=== PATIENT | female | born 1985 | race Hispanic/Latino ===

== ENCOUNTER 2019-06-18 06:19 | Emergency (ER) | payer OTHER ==
[2019-06-18] MEDS ORDERED: TETANUS & DIPHTHERIA TOX,ADULT 0.5 ML VIAL ONE (06:36)
--- NOTE | 2019-06-18 07:13 | EDPHYS ---
Physician Documentation [facility] Name: Melony Michaud Age: 33 yrs Sex: Female : 1985 Arrival Date: 06/18/2019 Time: 06:21 Bed 17 Private MD: ED Physician Josue Solano HPI: 06/18 06:33 This 33 yrs old Female presents to ER via Unassigned with complaints of Fall kb Injury - Finger Injury. 06:33 Details of fall: The patient fell from an upright position, while walking, slipped in kb mud. Onset: The symptoms/episode began/occurred just prior to arrival. Associated injuries: The patient sustained right hand, abrasion, decreased range of motion, painful injury, swelling, abrasions to heel of hand, pain and decreased ROM to 5th digit, right foot, painful injury, palmar aspect of left forearm, abrasion. Severity of symptoms: At their worst the symptoms were mild, moderate, in the emergency department the symptoms are unchanged. The patient has not experienced similar symptoms in the past. The patient has not recently seen a physician. 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 - Social history:: Smoking status: Patient uses tobacco products, denies chronic smoking, but will smoke occasionally, Patient uses alcohol, occasionally. Patient/guardian denies using street drugs. - Ebola Screening: : Patient negative for fever greater than or equal to 101.5 degrees Fahrenheit, and additional compatible Ebola Virus Disease symptoms Patient denies exposure to infectious person Patient denies travel to an Ebola-affected area in the 21 days before illness onset. ROS: 06:32 Constitutional: Negative for fever, chills, and weight loss, ENT: Negative for injury, kb pain, and discharge, Neck: Negative for injury, pain, and swelling, Cardiovascular: Negative for chest pain, palpitations, and edema, Respiratory: Negative for shortness of breath, cough, wheezing, and pleuritic chest pain, Abdomen/GI: Negative for abdominal pain, nausea, vomiting, diarrhea, and constipation, Neuro: Negative for headache, weakness, numbness, tingling, and seizure. 06:32 MS/extremity: Positive for pain, of the right foot and right little finger. 06:32 Skin: Positive for abrasion(s). Exam: 06:31 Constitutional: This is a well developed, well nourished patient who is awake, alert, kb and in no acute distress. Head/Face: Normocephalic, atraumatic. Neck: Trachea midline, no thyromegaly or masses palpated, and no cervical lymphadenopathy. Supple, full range of motion without nuchal rigidity, or vertebral point tenderness. No Meningismus. Chest/axilla: Normal chest wall appearance and motion. Nontender with no deformity. No lesions are appreciated. Cardiovascular: Regular rate and rhythm with a normal S1 and S2. No gallops, murmurs, or rubs. Normal PMI, no JVD. No pulse deficits. Respiratory: Lungs have equal breath sounds bilaterally, clear to auscultation and percussion. No rales, rhonchi or wheezes noted. No increased work of breathing, no retractions or nasal flaring. Abdomen/GI: Soft, non-tender, with normal bowel sounds. No distension or tympany. No guarding or rebound. No evidence of tenderness throughout. Neuro: Awake and alert, GCS 15, oriented to person, place, time, and situation. Cranial nerves II-XII grossly intact. Motor strength 5/5 in all extremities. Sensory grossly intact. Cerebellar exam normal. Normal gait. 06:31 Musculoskeletal/extremity: Extremities: grossly normal except: noted in the right little finger: decreased ROM, pain, tenderness, ROM: limited active range of motion due to pain, in the right little finger, Circulation is intact in all extremities. Sensation intact. 06:31 Skin: injury, abrasion(s), moderate sized abrasion noted, of the heel of right hand and palmar aspect of left forearm. Vital Signs: 06:25 Weight 114.31 kg (R); Height 5 ft. 9 in. (175.26 cm) (R); Pain 10/10; fc 06:46 BP 132 / 94; Pulse 101; Resp 18; Temp 97.4; Pulse Ox 100% on R/A; Pain 10/10; aa1 07:49 BP 127 / 89; Pulse 99; Resp 16; Temp 97.5; Pulse Ox 100% ; bp 06:25 Body Mass Index 37.21 (114.31 kg, 175.26 cm) fc Eldred Coma Score: 06:25 Eye Response: spontaneous(4). Verbal Response: oriented(5). Motor Response: obeys fc commands(6). Total: 15. Trauma Score (Adult): 06:25 Eye Response: spontaneous(1); Verbal Response: oriented(1); Motor Response: obeys fc commands(2); Systolic BP: > 89 mm Hg(4); Respiratory Rate: 10 to 29 per min(4); Eldred Score: 15; Trauma Score: 12 MDM: 06:23 Patient medically screened. [facility] 06:31 Data reviewed: vital signs, nurses notes. Data interpreted: Pulse oximetry: on room air kb is 100 %. Interpretation: normal. 07:11 Counseling: I had a detailed discussion with the patient and/or guardian regarding: the kb historical points, exam findings, and any diagnostic results supporting the discharge/admit diagnosis, radiology results, the need for outpatient follow up, a family practitioner, to return to the emergency department if symptoms worsen or persist or if there are any questions or concerns that arise at home. 07:15 Test interpretation: by ED physician or midlevel provider: plain radiologic studies, kb nondisplaced fracture of proximal phalanx of fifth digit. 06/18 06:28 Order name: Hand Right 3 View XRAY kb 06/18 06:28 Order name: Foot Right 3 View XRAY kb 06/18 06:28 Order name: Wound Care; Complete Time: 06:49 kb 06/18 07:11 Order name: Finger Splint; Complete Time: 07:33 kb Administered Medications: 06:48 Drug: Tetanus-Diphtheria Toxoid Adult 0.5 ml {National Sales Manager: [employer]. Exp: aa1 01/09/2021. Lot #: [id number]. } Route: IM; Site: left deltoid; 06:58 Follow up: Response: No adverse reaction bp Disposition: 08:31 Co-signature as Attending Physician, Josue Solano MD I agree with the assessment and [facility] plan of care. Disposition: 06/18/19 07:13 Discharged to Home. Impression: Fall on same level from slipping, tripping and stumbling, Pain in right foot, Nondisplaced fracture of proximal phalanx of right little finger, Abrasion of right hand, Abrasion of knee, Abrasion of left elbow. - Condition is Stable. - Discharge Instructions: Foot Sprain, Musculoskeletal Pain, Finger Fracture, [id number], Abrasion, [id number]. - Prescriptions for Diclofenac Sodium 75 mg Oral Tablet, Delayed Release (E.C.) - take 1 tablet by ORAL route 2 times per day As needed; 30 tablet. - Medication Reconciliation Form, Thank You Letter, Antibiotic Education, Prescription Opioid Use, Work release form form. - Follow up: Emergency Department; When: As needed; Reason: Worsening of condition. Follow up: Private Physician; When: 2 - 3 days; Reason: Recheck today's complaints, Continuance of care, Re-evaluation by your physician. Signatures: Dispatcher [employer] EDDyana Woods, CLAUDIA WILSONP-Aleksandra Albright RN RN aa1 Josue Solano MD MD cha Chretien, Felicia, RN RN Erick Cummins RN RN bp Corrections: (The following items were deleted from the chart) 07:55 07:13 06/18/2019 07:13 Discharged to Home. Impression: Fall on same level from bp slipping, tripping and stumbling; Pain in right foot; Nondisplaced fracture of proximal phalanx of right little finger; Abrasion of right hand; Abrasion of knee; Abrasion of left elbow. Condition is Stable. Forms are Work release form, Medication Reconciliation Form, Thank You Letter, Antibiotic Education, Prescription Opioid Use. Follow up: Emergency Department; When: As needed; Reason: Worsening of condition. Follow up: Private Physician; When: 2 - 3 days; Reason: Recheck today's complaints, Continuance of care, Re-evaluation by your physician. kb
--- NOTE | 2019-06-18 07:13 | ER ---
Nurse's Notes [facility] Name: Melony Michaud Age: 33 yrs Sex: Female : 1985 Arrival Date: 06/18/2019 Time: 06:21 Bed 17 Private MD: Diagnosis: Fall on same level from slipping, tripping and stumbling;Pain in right foot;Nondisplaced fracture of proximal phalanx of right little finger;Abrasion of right hand;Abrasion of knee;Abrasion of left elbow Presentation: 06/18 06:25 Presenting complaint: Patient states: that she was walking and slipped in the mud. Has fc cuts to right palm, abrasions to right knee and left elbow and increased pain to right little finger and right foot. Care prior to arrival: Bleeding of injury controlled. Mechanism of Injury: Fall from standing position. Trauma event details: Injury occurred in the [facility], Injury occurred: at home. Injury occurred: June 18, 2019. 06:25 Acuity: BRETT 4 fc 06:25 Method Of Arrival: Ambulatory fc 06:25 Transition of care: patient was not received from another setting of care. Onset of fc symptoms was June 18, 2019. Risk Assessment: Do you want to hurt yourself or someone else? Patient reports no desire to harm self or others. Initial Sepsis Screen:. 07:50 Initial Sepsis Screen: Does the patient meet any 2 criteria? HR > 90 bpm. No. Patient's bp initial sepsis screen is negative. Does the patient have a suspected source of infection? No. Patient's initial sepsis screen is negative. 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 - Social history:: Smoking status: Patient uses tobacco products, denies chronic smoking, but will smoke occasionally, Patient uses alcohol, occasionally. Patient/guardian denies using street drugs. - Ebola Screening: : Patient negative for fever greater than or equal to 101.5 degrees Fahrenheit, and additional compatible Ebola Virus Disease symptoms Patient denies exposure to infectious person Patient denies travel to an Ebola-affected area in the 21 days before illness onset. Screenin:25 Abuse screen: Denies threats or abuse. Tuberculosis screening: No symptoms or risk fc factors identified. 06:25 Nutritional screening: No deficits noted. Fall Risk None identified. fc Assessment: 06:40 General: Appears in no apparent distress. comfortable, Behavior is calm, cooperative, aa1 appropriate for age. Pain: Complains of pain in right hand, left elbow and right knee. Neuro: Level of Consciousness is awake, alert, obeys commands, Oriented to person, place, time, situation, Moves all extremities. Respiratory: Airway is patent Respiratory effort is even, unlabored, Respiratory pattern is regular, symmetrical. GI: No signs and/or symptoms were reported involving the gastrointestinal system. : No signs and/or symptoms were reported regarding the genitourinary system. EENT: No signs and/or symptoms were reported regarding the EENT system. Derm: Skin is intact, is healthy with good turgor, Skin is pink, warm \T\ dry. Musculoskeletal: Circulation, motion, and sensation intact. Capillary refill < 3 seconds, Range of motion: intact in all extremities. Injury Description: Abrasion sustained to left elbow and right knee and heel of right hand. 06:58 Reassessment: RECD REPORT FROM CHAKA PALMA. 33YO HF S/P FALL IN MUD, C/O ABRASION TO KNEE bp AND ELBOW. NO OBVIOUS DEFORMITY OR ACTIVE BLEEDING. XRAY COMPLETED, RESULTS PENDING FOR DISPO. 07:48 Reassessment: PT D/C HOME AMBULATORY, DX WITH FALL AND R FIFTH FINGER FX. bp Vital Signs: 06:25 Weight 114.31 kg (R); Height 5 ft. 9 in. (175.26 cm) (R); Pain 10/10; fc 06:46 BP 132 / 94; Pulse 101; Resp 18; Temp 97.4; Pulse Ox 100% on R/A; Pain 10/10; aa1 07:49 BP 127 / 89; Pulse 99; Resp 16; Temp 97.5; Pulse Ox 100% ; bp 06:25 Body Mass Index 37.21 (114.31 kg, 175.26 cm) fc Logan Coma Score: 06:25 Eye Response: spontaneous(4). Verbal Response: oriented(5). Motor Response: obeys fc commands(6). Total: 15. Trauma Score (Adult): 06:25 Eye Response: spontaneous(1); Verbal Response: oriented(1); Motor Response: obeys fc commands(2); Systolic BP: > 89 mm Hg(4); Respiratory Rate: 10 to 29 per min(4); Full[place] Score: 15; Trauma Score: 12 ED Course: 06:21 Patient arrived in ED. ds1 06:21 [facility] kb 06:21 Josue Solano MD is Attending Physician. kb 06:25 Patient has correct armband on for positive identification. Placed in gown. Bed in low fc position. Call light in reach. Side rails up X 1. 06:25 Arm band placed on Patient placed in an exam room, on a stretcher. fc 06:25 Patient maintains SpO2 saturation greater than 95% on room air. Thermoregulation: fc refused warm blankets. 06:25 No provider procedures requiring assistance completed. fc 06:35 Triage completed. fc 06:40 Patient did not have IV access during this emergency room visit. Wound care: to aa1 abrasion, located on right knee and left elbow and heel of right hand was cleaned with Hibiclens, irrigated with normal saline, Patient tolerated well. 06:56 Erick Ramos, RN is Primary Nurse. bp 06:57 Hand Right 3 View XRAY In Process Unspecified. EDMS 06:57 Foot Right 3 View XRAY In Process Unspecified. EDMS Administered Medications: 06:48 Drug: Tetanus-Diphtheria Toxoid Adult 0.5 ml {Event Lighting Specialist: [employer]. Exp: aa1 01/09/2021. Lot #: [id number]. } Route: IM; Site: left deltoid; 06:58 Follow up: Response: No adverse reaction bp Outcome: 07:13 Discharge ordered by . kb 07:49 Discharged to home ambulatory. bp 07:49 Condition: stable 07:49 Discharge instructions given to patient, Instructed on discharge instructions, follow up and referral plans. medication usage, Demonstrated understanding of instructions, follow-up care, medications, splint care, Prescriptions given X 1. 07:55 Patient left the ED. bp Signatures: Dispatcher [employer] EDMS Dyana Kennedy, CLAUDIA [employer] ASSEMBLER-Chaka Albright RN RN aa1 Melony Quintanilla, RN RN Mya Carolina ds1 Erick Ramos RN RN bp
[2019-06-18 08:01] VITALS: O2SAT 100
[2019-06-18 08:03] VITALS: BP 127/89; TEMP 97.5
--- NOTE | 2019-06-18 08:50 | RAD REPORT ---
EXAM DESCRIPTION: RAD - Hand Right 3 View - 06/18/2019 6:57 am CLINICAL HISTORY: Right hand pain status post injury FINDINGS: No fracture or dislocation is seen.
--- NOTE | 2019-06-18 08:52 | RAD REPORT ---
EXAM DESCRIPTION: RAD - Foot Right 3 View - 06/18/2019 6:57 am CLINICAL HISTORY: Right foot pain status post injury FINDINGS: No fracture or dislocation is seen Hallux valgus deformity Large plantar calcaneal spur
== END 2019-06-18 07:55 | disposition home or self-care (01) ==
LOC: ER 06:19
PROC: 2W3JX1Z Immobilization of Right Finger using Splint (ICD-10-PCS; principal; 2019-06-18)
DX: S62.646A Nondisplaced fracture of proximal phalanx of right little finger, initial encounter for closed fracture (principal); S60.511A Abrasion of right hand, initial encounter; S50.312A Abrasion of left elbow, initial encounter; S80.211A Abrasion, right knee, initial encounter; W01.0XXA Fall on same level from slipping, tripping and stumbling without subsequent striking against object, initial encounter; Y93.9 Activity, unspecified; Y92.9 Unspecified place or not applicable; Z23 Encounter for immunization; Z72.0 Tobacco use; I10 Essential (primary) hypertension; E11.9 Type 2 diabetes mellitus without complications
CPT/HCPCS: 90471; 90714; 99284

== ENCOUNTER 2022-05-13 02:42 | Emergency (ER) | payer OTHER ==
--- OUTSIDE RECORDS SUMMARY | 2022-05-13 02:46 | XMS REPORT | Continuity of Care Document ---
:1985 Author Organization [facility] t Address [address] [place] [address] Care Team Providers Name Role Phone Curry Acosta DO Primary Care Physician JAYDEN MACIEL Attending Clinician Unavailable Payers Payer Name Policy Type Policy Number Effective Date Expiration Date S ource Problems Condition Condition Condition Status Onset Resolution Last Treating Co mments Source Name Details Category Date Date Treatment Clinician Date No known No known Disease Metho di active active st problems problems Hospit a l Allergies, Adverse Reactions, Alerts Allergy Allergy Status Severity Reaction(s) Onset Inactive Treating Comm ents Source Name Type Date Date Clinician No Known DA Active U [facility] 12[facility] [address] No Known DA Active U 0 [facility] Allergie 12-22 [facility] 00:[facility]: [facility] 00 are [facility] Aspirin Propensi Active Swelling Metho di ty to 8-18 st adverse 00:00: Hospita reaction 00 l s to drug Family History Family Member Diagnosis Comments Start Date Stop Date Source Paternal grandfather Diabetes [facility] Natural sister Diabetes [facility] Natural brother Diabetes [facility] Cousin Breast cancer [facility] ospital Natural father Diabetes [facility] Maternal grandmother Diabetes [facility] mother Diabetes [facility] Social History Social Habit Start Date Stop Date Quantity Comments Source History of tobacco Occasional Method ist use tobacco smoker Hospital Alcohol intake 2020-09-11 2020-09-11 Current drinker Metho dist 00:00:00 00:00:00 of alcohol [facility] (finding) Cigarettes smoked 2020-09-10 2020-09-[address] current (pack per 00:00:00 00:00:00 Hospita l day) - Reported Tobacco use and 2020-09-10 2020-09-10 Former smokeless [facility] exposure 00:00:00 00:00:00 tobacco user Hospital Sex Assigned At [birth year] [facility] 00:00:00 00:00:00 Hospital Smoking Status Start Date Stop Date Source Occasional tobacco smoker 2020-09-10 00:00:00 [facility] Medications Ordered Filled Start Stop Current Ordering Indication Dosage Frequency Signature Comments Components Source Medication Medication Date Date Medication? Clinician (SIG) Name Name metFORMIN Yes 500mg Q.5D Take 500 Met hodi (GLUCOPHAGE 1-[address] ) 500 mg 09:07: mouth 2 Hospit a tablet 18 (two) l times a day with meals. fenofibrate Yes fenofibrat Methodi (LOFIBRA) -[address] 54 MG 09:07: tablet Hospita tablet 18 Take 1 l tablet every day by oral route with meals. glyBURIDE Yes glyburide Met hodi (DIABETA) 1-[address] 2.5 MG 09:07: tablet Hospita tablet 18 l metFORMIN Yes metformin Met hodi (GLUCOPHAGE 1-13 1,[address] ) 1,000 mg 09:07: tablet Hospi ta tablet 18 l lisinopriL Yes 10mg QD Take 10 mg M ethodi (PRINIVIL) -[address] 10 mg 09:07: daily. Hospita tablet 18 l atorvastati Yes 20mg QD Take 20 mg Methodi n (LIPITOR) -[address] 20 mg 09:07: daily. Hospita tablet 18 Default OP l ins TRUE METRIX 2017-0 Yes QD daily. for Methodi GLUCOSE 05-[address] TEST STRIP 00:00: blood Hospit a strip test 00 sugar l strips TRUE METRIX 2017-0 Yes U UTD Metho di GLUCOSE 05-05 st METER misc 00:00: Hospita 00 l TRUEPLUS 2017-0 Yes U UTD ONCE Met shirleyi LANCETS 30 9-[address] gauge misc 00:00: Hospita 00 l Procedures This patient has no known procedures. Plan of Care Planned Activity Planned Date Details Comments Source Future Scheduled 2022-04-29 HEPATITIS B VACCINES Met [facility] Test 07:13:14 (1 of 3 - 3-dose series) [code = HEPATITIS B VACCINES (1 of 3 - 3-dose series)] Future Scheduled 2022-04-29 COVID-19 VACCINE (#1) [facility] Test 07:13:14 [code = COVID-19 VACCINE (#1)] Future Scheduled 2022-04-29 Pneumococcal Vaccine: [facility] Test 07:13:14 Pediatrics (0 to 5 Years) and At-Risk Patients (6 to 64 Years) (1 - PCV) [code = Pneumococcal Vaccine: Pediatrics (0 to 5 Years) and At-Risk Patients (6 to 64 Years) (1 - PCV)] Future Scheduled 2022-04-29 Hepatitis C screening [facility] Test 07:13:14 (procedure) [code = 926914650] Future Scheduled 2022-04-[address] [facility] Test 07:13:14 [code = INFLUENZA VACCINE] Future Scheduled 2022-04-29 Screening for [facility] Test 07:13:14 malignant neoplasm of cervix (procedure) [code = 174269512] Encounters Start End Encounter Admission Attending Care Care Encounter Source Date/Time Date/Time Type Type Clinicians Facility Department ID 2019-12-23 Inpatient HCANW ROSALINA [id number] [facility] 16:16:00 29 [facility] 2020-09-10 2020-09-10 Outpatient LUCÍA MACIELA [facility] [id number] [place] 00:00:00 00:00:[address] Results Test Description Test Time Test Comments Results Result Comments Source TROPONIN-I 2019-12-23 19:14:00 Test Item Value Reference Range Interpretation Comme nts TROPONIN-I (test code = TROPI) <0.020 ng/mL 0.000-0.034 N HCG SERUM [id number] 18:01:00 Test Item Value Reference Range Interpretation Comments HCG SERUM QUAL NEGATIVE NEGATIVE This is a rosanne litative (test code = HCGQL) screenin g test.The quantitative cg may be helpful.Weakly positive results should be repeated in 48 hours. - XR CHEST 2 [id number] 17:59:00Patient Name: KIMBERLY BETH Unit No: [id number] EXAMS: CPT: [id number] XR CHEST 2 V [id number] STUDY: -XR CHEST 2 V INDICATION: CHEST PAIN TECHNIQUE: PA and lateral views of the chest. COMPARISON: None available. FINDINGS: No mediastinal shift or enlargement. Normal cardiac silhouette. Normal symmetriclung inflation. No evidence of pulmonary edema, airspace pathology, pleural effusion or pneumothorax. No suspicious finding in the included bones. Surgical clips in the right upper quadrant abdomen maybe from prior cholecystectomy. IMPRESSION: No evidence of acute pulmonary process. at 175 Reported and signed by: MELA PLAZA MD CC: Odalys Rausch Technologist: Clarita Perkins Time: DAP (Gy m2): Air Kerma (mGy): Trscr Dt/Tm: 12/23/2019 (1758) by:Yessi Orig Print D/T: S: 12/23/2019 (1801) BATCH NO: N/A Name: KIMBERLY BETH [facility] Phys: Odalys Cooper [address] [facility] : 1985 Age: 34 Sex: [place] [address] Loc: N.ERS Exam Date: 12/23/2019 Status: REG ER PH: FAX:PAGE 1 Signed [id number] 17:15:00 Test Item Value Reference Range Interpretation Comments TROPONIN-I (test code = TROPI) <0.020 ng/mL 0.000-0.034 N COMPREHENSIVE METABOLIC [id number] 17:14:00 Test Item Value Reference Range Interpretation Comments SODIUM (test code = 131 mmol/L 135-145 L NA) POTASSIUM (test 4.2 mmol/L 3.6-5.0 N code = K) CHLORIDE (test code 99 mmol/L 101-111 L = CL) CARBON DIOXIDE 24 mmol/L 21-31 N (test code = CO2) GLUCOSE (test code 310 mg/dl 70-100 H = GLU) BLOOD UREA NITROGEN 14 mg/dl 6-20 N (test code = BUN) GLOMERULAR >=60 max >60 The estimated FILTRATION RATE estimate glomerular (test code = GFR) filtration rate is computed usingpatient ra ce, age (>18), sex, and serum creatinin e. If anyof the ne eded data elements a re missing the Laboratory nir ot compute an estimation of t he glomerular filtration rate . CREATININE (test 0.65 mg/dL 0.44-1.03 N code = CREAT) TOTAL PROTEIN (test 7.1 g/dL 6.7-8.2 N code = PROT) ALBUMIN (test code 3.5 g/dL 3.2-5.5 N = ALB) CALCIUM (test code 8.7 mg/dL 8.5-10.5 N = CA) BILIRUBIN TOTAL 0.80 mg/dL 0.2-1.3 N (test code = BILT) SGOT/AST (test code 67 U/L 10-42 H = AST) SGPT/ALT (test code 74 U/L 10-60 H = ALT) ALKALINE 87 U/L 42-121 N PHOSPHATASE (test code = ALKP) [id number] 17:14:00 Test Item Value Reference Range Interpretation Comments LIPASE (test code = LIP) 45 IU/L 22-51 N COMPREHENSIVE METABOLIC [id number] 17:09:00 Test Item Value Reference Range Interpretation Comments SODIUM (test code = 131 mmol/L 135-145 L NA) POTASSIUM (test 4.2 mmol/L 3.6-5.0 N code = K) CHLORIDE (test code 99 mmol/L 101-111 L = CL) CARBON DIOXIDE 24 mmol/L 21-31 N (test code = CO2) GLUCOSE (test code 310 mg/dl 70-100 H = GLU) BLOOD UREA NITROGEN 14 mg/dl 6-20 N (test code = BUN) GLOMERULAR >=60 max >60 The estimated FILTRATION RATE estimate glomerular (test code = GFR) filtration rate is computed usingpatient ra ce, age (>18), sex, and serum creatinin e. If anyof the ne eded data elements a re missing the Laboratory nir ot compute an estimation of t he glomerular filtration rate . CREATININE (test 0.65 mg/dL 0.44-1.03 N code = CREAT) TOTAL PROTEIN (test 7.1 g/dL 6.7-8.2 N code = PROT) ALBUMIN (test code 3.5 g/dL 3.2-5.5 N = ALB) CALCIUM (test code 8.7 mg/dL 8.5-10.5 N = CA) BILIRUBIN TOTAL mg/dL 0.2-1.3 (test code = BILT) SGOT/AST (test code U/L 10-42 = AST) SGPT/ALT (test code U/L 10-60 = ALT) ALKALINE U/L 42-121 PHOSPHATASE (test code = ALKP) [id number] 17:09:00 Test Item Value Reference Range Interpretation Comments LIPASE (test code = LIP) 45 IU/L 22-51 N CBC W/AUTO [id number] 16:54:00 Test Item Value Reference Range Interpretation Comments WHITE BLOOD CELL (test code = 8.7 x10 3/uL 3.2-11.5 N WBC) RED BLOOD CELL (test code = 4.33 x10(6)/m 3.70-5.10 N RBC) HEMOGLOBIN (test code = HGB) 12.0 g/dL 12.0-15.0 N HEMATOCRIT (test code = HCT) 36.1 % 35.7-44.8 N MEAN CELL VOLUME (test code = 83 fL 80-100 N MCV) MEAN CELL HGB (test code = MCH) 27.7 pg 26.2-33.8 N MEAN CELL HGB CONCENTRATION 33.2 g/dL 30.0-34.0 N (test code = MCHC) RED CELL DISTRIBUTION WIDTH 13.0 % 11.3-14.5 N (test code = RDW) PLATELET COUNT (test code = 268 x10 3/uL 130-408 N PLT) MEAN PLATELET VOLUME (test code 9.8 fL 8.6-12.6 N = MPV) NEUTROPHIL % (test code = NT%) 69.5 % 40.0-70.0 N IMMATURE GRANULOCYTE % (test 0.5 % 0.0-2.0 N code = IG%) LYMPHOCYTE % (test code = LY%) 21.6 % 20-40 N MONOCYTE % (test code = MO%) 6.3 % 1-10 N EOSINOPHIL % (test code = EO%) 1.5 % 0.0-5.0 N BASOPHIL % (test code = BA%) 0.6 % 0.0-1.0 N NUCLEATED RBC % (test code = 0.0 % 0.0-0.9 N NRBC%) NEUTROPHIL # (test code = NT#) 6.1 x10 3/uL 1.6-7.2 N LYMPHOCYTE # (test code = LY#) 1.88 x10 3/uL 1.1-2.7 N MONOCYTE # (test code = MO#) 0.6 x10 3/uL 0.3-0.8 N EOSINOPHIL # (test code = EO#) 0.1 x10 3/uL 0.0-0.5 N BASOPHIL # (test code = BA#) 0.1 x10 3/uL 0.0-0.1 N
[2022-05-13 03:03] LABS: Absolute Lymphocytes (CBC) 2.9 K/uL (0.7-4.9); Hematocrit 36.8 % (36.0-45.0); Lymphocytes % 31.7 % (15.3-44.8); MCV 88.4 fL (80-100); MPV 7.5 fL (7.6-11.3); RBC Red Blood Cell Count 4.16 M/uL (3.86-4.86)
[2022-05-13 03:17] LABS: Potassium 3.8 mmol/L (3.5-5.1); Troponin High Sensitivity 3.5 pg/mL (<58.9)
--- NOTE | 2022-05-13 06:12 | EDPHYS ---
Physician Documentation [facility] Name: Melony Michaud Age: 36 yrs Sex: Female : 1985 Arrival Date: 05/13/2022 Time: 02:45 Bed 8 Private MD: ED Physician Ezekiel Christianson HPI: 05/13 06:35 This 36 yrs old Female presents to ER via EMS with complaints of Chest pain. kdr 06:35 Patient reports chest pain that started earlier today. Pain radiates to the left chest. kdr Onset was about 1 AM today while at work. Patient has had similar episodes off and on for the last 4 years. She has had a prior diagnosis of anxiety.. Onset: The symptoms/episode began/occurred suddenly, just prior to arrival, at 01:00. Severity of symptoms: At their worst the symptoms were mild moderate in the emergency department the symptoms have improved. The patient has not experienced similar symptoms in the past. The patient has not recently seen a physician. Historical: - Allergies: 02:55 NKA; kl - Home Meds: 02:55 Metformin Oral once daily [Active]; kl - PMHx: 02:55 Diabetes - NIDDM; GERD; kl - Immunization history:: Adult Immunizations not up to date. - Social history:: Smoking status: Patient denies any tobacco usage or history of. ROS: 06:35 Constitutional: Negative for fever, chills, and weight loss, Eyes: Negative for injury, kdr pain, redness, and discharge, ENT: Negative for injury, pain, and discharge, Neck: Negative for injury, pain, and swelling, Respiratory: Negative for shortness of breath, cough, wheezing, and pleuritic chest pain, Abdomen/GI: Negative for abdominal pain, nausea, vomiting, diarrhea, and constipation, Back: Negative for injury and pain, : Negative for injury, bleeding, discharge, and swelling, MS/Extremity: Negative for injury and deformity, Skin: Negative for injury, rash, and discoloration, Neuro: Negative for headache, weakness, numbness, tingling, and seizure activity. Allergy/Immunology: Negative for hives, rash, and allergies, Endocrine: Negative for neck swelling, polydipsia, polyuria, polyphagia, and marked weight changes, Hematologic/Lymphatic: Negative for swollen nodes, abnormal bleeding, and unusual bruising. 06:35 Cardiovascular: Positive for chest pain, Negative for edema, orthopnea, palpitations, paroxysmal nocturnal dyspnea, acute changes. Exam: 06:35 Constitutional: This is a well developed, well nourished patient who is awake, alert, kdr and in no acute distress. Head/Face: Normocephalic, atraumatic. Eyes: Pupils equal round and reactive to light, extra-ocular motions intact. Lids and lashes normal. Conjunctiva and sclera are non-icteric and not injected. Cornea within normal limits. Periorbital areas with no swelling, redness, or edema. Neck: Trachea midline, no thyromegaly or masses palpated, and no cervical lymphadenopathy. Supple, full range of motion without nuchal rigidity, or vertebral point tenderness. No Meningismus. Chest/axilla: Normal chest wall appearance and motion. Nontender with no deformity. No lesions are appreciated. Cardiovascular: Regular rate and rhythm with a normal S1 and S2. No gallops, murmurs, or rubs. Normal PMI, no JVD. No pulse deficits. Respiratory: Lungs have equal breath sounds bilaterally, clear to auscultation and percussion. No rales, rhonchi or wheezes noted. No increased work of breathing, no retractions or nasal flaring. Abdomen/GI: Soft, non-tender, with normal bowel sounds. No distension or tympany. No guarding or rebound. No evidence of tenderness throughout. Back: No spinal tenderness. No costovertebral tenderness. Full range of motion. Female : Normal external genitalia. Skin: Warm, dry with normal turgor. Normal color with no rashes, no lesions, and no evidence of cellulitis. Vital Signs: 02:45 BP 114 / 71; Pulse 72; Resp 18; Temp 97.8(O); Pain 0/10; kl 03:12 BP 124 / 82; Pulse 76; Resp 17; Pulse Ox 97% on R/A; kl 04:34 BP 119 / 78; Pulse 68; Resp 18; Pulse Ox 99% on R/A; kl 06:24 BP 134 / 82; Pulse 72; Resp 16; Pulse Ox 100% on R/A; ha1 MDM: 06:10 Patient medically screened. kdr 06:35 Data reviewed: vital signs, nurses notes, lab test result(s), radiologic studies. kdr Counseling: I had a detailed discussion with the patient and/or guardian regarding: the historical points, exam findings, and any diagnostic results supporting the discharge/admit diagnosis, lab results, radiology results, the need for outpatient follow up. 05/13 02:46 Order name: Basic Metabolic Panel; Complete Time: 03:41 05/13 02:46 Order name: CBC with Diff; Complete Time: 03:41 05/13 02:46 Order name: Troponin HS; Complete Time: 03:41 05/13 02:46 Order name: XRAY Chest (1 view) 05/13 02:46 Order name: EKG; Complete Time: 02:47 05/13 03:50 Order name: Troponin High Sensitivity: Draw 2 hours from the initial draw ; Complete kdr Time: 06:05/13 02:46 Order name: Cardiac monitoring; Complete Time: 03:02 05/13 02:46 Order name: EKG - Nurse/Tech; Complete Time: 03:02 05/13 02:46 Order name: IV Saline Lock; Complete Time: 03:02 05/13 02:46 Order name: Labs collected and sent; Complete Time: 02:52 05/13 02:46 Order name: O2 Per Protocol; Complete Time: 03:05 05/13 02:46 Order name: O2 Sat Monitoring; Complete Time: 03:12 kl Administered Medications: No medications were administered Disposition Summary: 05/13/22 06:10 Discharge Ordered Location: Home kdr Problem: an acute exacerbation kdr Symptoms: are resolved kdr Condition: Stable kdr Diagnosis - Chest pain, unspecified kdr - Anxiety disorder, unspecified kdr Followup: kdr - With: Private Physician - When: 2 - 3 days - Reason: If symptoms return, Further diagnostic work-up, Recheck today's complaints, Continuance of care, Re-evaluation by your physician Discharge Instructions: - Discharge Summary Sheet kdr - Nonspecific Chest Pain, Adult, [id number] kdr - Generalized Anxiety Disorder, Adult kdr Forms: - Medication Reconciliation Form kdr - Thank You Letter kdr Prescriptions: - Ativan 1 mg Oral Tablet - take 1 tablet by ORAL route every 8 hours As needed; 10 tablet; Refills: 0, kdr Product Selection Permitted Signatures: Dispatcher [facility] Gemma Cage RN Ezekiel Delgado MD MD kdr Corrections: (The following items were deleted from the chart) 02:56 02:55 PMHx: allergies; sanjeev pace 02:56 02:55 PMHx: Hypertension; sanjeev pace
--- NOTE | 2022-05-13 06:12 | ER ---
Nurse's Notes [facility] Name: Melony Michaud Age: 36 yrs Sex: Female : 1985 Arrival Date: 05/13/2022 Time: 02:45 Bed 8 Private MD: Diagnosis: Chest pain, unspecified;Anxiety disorder, unspecified Presentation: 05/13 02:45 Chief complaint: Patient states: chest pain mid sternal radiate to lower left chest kl wall off and on onset 0100 while at work previous episode x 4 years prior diagnosed with anxiety. Coronavirus screen: Vaccine status: Patient reports being unvaccinated. Ebola Screen: Patient negative for fever greater than or equal to 101.5 degrees Fahrenheit, and additional compatible Ebola Virus Disease symptoms. Initial Sepsis Screen: Does the patient meet any 2 criteria? No. Patient's initial sepsis screen is negative. Does the patient have a suspected source of infection? No. Patient's initial sepsis screen is negative. Risk Assessment: Do you want to hurt yourself or someone else? Patient reports no desire to harm self or others. 02:45 Method Of Ar[facility] 02:45 Acuity: BRETT 3 kl 02:58 Note pain increases with deep breathing and movement. Care prior to arrival: IV kl initiated. 18 GA, in the left antecubital area. 06:23 Onset of symptoms was May 13, 2022. ha1 Triage Assessment: 02:56 General: Appears distressed, uncomfortable, well developed, Behavior is cooperative, kl anxious. Pain: Denies pain. EENT: No deficits noted. No signs and/or symptoms were reported regarding the EENT system. Neuro: No deficits noted. Cardiovascular: Reports chest pain, off and on. Respiratory: No deficits noted. GI: No deficits noted. No signs and/or symptoms were reported involving the gastrointestinal system. : No deficits noted. No signs and/or symptoms were reported regarding the genitourinary system. Derm: No deficits noted. No signs and/or symptoms reported regarding the dermatologic system. Historical: - Allergies: 02:55 NKA; kl - Home Meds: 02:55 Metformin Oral once daily [Active]; kl - PMHx: 02:55 Diabetes - NIDDM; GERD; kl - Immunization history:: Adult Immunizations not up to date. - Social history:: Smoking status: Patient denies any tobacco usage or history of. Screenin:33 Abuse screen: Denies threats or abuse. Nutritional screening: No deficits noted. kl Tuberculosis screening: No symptoms or risk factors identified. Fall Risk None identified. Assessment: 04:33 Reassessment: Patient appears in no apparent distress at this time. Patient and/or kl family updated on plan of care and expected duration. Pain level reassessed. Patient is alert, oriented x 3, equal unlabored respirations, skin warm/dry/pink. Vital Signs: 02:45 BP 114 / 71; Pulse 72; Resp 18; Temp 97.8(O); Pain 0/10; kl 03:12 BP 124 / 82; Pulse 76; Resp 17; Pulse Ox 97% on R/A; kl 04:34 BP 119 / 78; Pulse 68; Resp 18; Pulse Ox 99% on R/A; kl 06:24 BP 134 / 82; Pulse 72; Resp 16; Pulse Ox 100% on R/A; ha1 ED Course: 02:45 Patient arrived in ED. kl 02:51 Ezekiel Christianson MD is Attending Physician. kdr 02:55 Triage completed. kl 03:00 Teetee Llamas, RN is Primary Nurse. ha1 03:00 No provider procedures requiring assistance completed. Maintain EMS IV. Dressing kl intact. Good blood return noted. Site clean \T\ dry. Gauge \T\ site: 18 gauge left forearm. 03:00 Client placed on continuous cardiac and pulse oximetry monitoring. NIBP monitoring kl applied. 03:01 EKG done, by ED staff, reviewed by Ezekiel Christianson MD. kl 03:02 Basic Metabolic Panel Sent. kl 03:02 CBC with Diff Sent. kl 03:02 Troponin HS Sent. kl 03:11 XRAY Chest (1 view) In Process Unspecified. EDMS 05:05 Troponin High Sensitivity: Draw 2 hours from the initial draw Sent. kl 06:23 IV discontinued, intact, bleeding controlled, No redness/swelling at site. Pressure ha1 dressing applied. 06:23 Arm band placed on right wrist. ha1 06:24 Patient has correct armband on for positive identification. ha1 Administered Medications: No medications were administered Medication: 06:24 VIS not applicable for this client. ha1 Outcome: 06:10 Discharge ordered by . kdr 06:23 Discharged to home ambulatory. ha1 06:23 Condition: stable 06:23 Discharge instructions given to patient, Instructed on discharge instructions, follow up and referral plans. Demonstrated understanding of instructions, follow-up care. 06:24 Patient left the ED. ha1 Signatures: Dispatcher [employer] Gemma Cage RN RN Ezekiel Dumont MD MD kdr Ayala, Heidy, RN RN ha1 Corrections: (The following items were deleted from the chart) 02:56 02:55 PMHx: allergies; kl kl 02:56 02:55 PMHx: Hypertension; kl kl
--- NOTE | 2022-05-13 13:27 | RAD REPORT ---
EXAM DESCRIPTION: RAD - Chest Single View - 05/13/2022 3:09 am CLINICAL HISTORY: 36 years Female, CHEST PAIN COMPARISON: None. TECHNIQUE: Single portable x-ray view of the chest performed on 05/13/2022 at 3:05 AM FINDINGS: The lungs are well expanded and are clear. There is no evidence of a pneumothorax. The cardiac silhouette is normal in size and configuration. The mediastinal contours are normal. No acute osseous abnormality is identified. No acute soft tissue abnormalities are seen. Lines and tubes: None. Free air: None IMPRESSION: No evidence of acute intrathoracic disease. Electronically signed by: Margie Rodriguez DO 05/13/2022 3:34 AM CDT Due to temporary technical issues with the PACS/Fluency reporting system, reports are being signed by the in house radiologists without review as a courtesy to insure prompt reporting. The interpreting radiologist is fully responsible for the content of the report.
[2022-05-14 10:47] VITALS: TEMP 97.8
[2022-05-14 10:53] VITALS: BP 134/82; O2SAT 100
--- NOTE | 2022-05-14 12:35 | EKG ---
Test Date: 2022-05-13 Test Time: 02:51:06 Merchandising Internship: IVONNE MEASUREMENT RESULTS: Intervals: Rate: 73 MI: 130 QRSD: 96 QT: 384 QTc: 423 [place]: P: MI: 130 QRS: 153 T: 166 INTERPRETIVE STATEMENTS: Normal sinus rhythm Right axis deviation Nonspecific ST and T wave abnormality Abnormal ECG No previous ECG available for comparison Electronically Signed On 05-14-22 12:32:39 CDT by Chapito Mccracken
== END 2022-05-13 06:24 | disposition home or self-care (01) ==
LOC: ER 02:42
DX: R07.9 Chest pain, unspecified (principal); F41.9 Anxiety disorder, unspecified; E11.9 Type 2 diabetes mellitus without complications
CPT/HCPCS: 36415; 71045; 80048; 84484; 85025; 93005; 99284